=== PATIENT | male | born 1970 | race Caucasian/White ===

== ENCOUNTER 2020-02-19 11:38 | Day surgery (SDC) | payer OTHER, BC ==
[~2020-02-19 11:38] MED LIST: Lactated Ringers 1,000 ML IV SCH; Sodium Chloride 0.9% 10 ML SDV IV PRN; Sodium Chloride 0.9% 10 ML Syringe FLUSH PRN; Sodium Chloride 0.9% 2.5 ML Syringe FLUSH PRN
--- NOTE | 2020-02-19 12:03 | PCM.PREANE ---
Preanesthetic Assessment - Anesthesia/Transfusion/Family Hx Anesthesia History: Prior Anesthesia Without Reaction Family History of Anesthesia Reaction: No Transfusion History: No Prior Transfusion(s) Intubation History: Unknown - Review of Systems General: No Symptoms Pulmonary: No Symptoms Cardiovascular: No Symptoms Gastrointestinal: Other (change of bowel habits) Neurological: No Symptoms Other: Reports: None - Physical Assessment Vital Signs: Last Vital Signs Temp 36.2 C 02/19/20 11:52 Pulse 80 02/19/20 11:52 Resp 16 02/19/20 11:52 BP 121/83 02/19/20 11:52 Pulse Ox 95 02/19/20 11:52 Height: 5 ft 8 in Weight: 84.368 kg ASA Class: 2 Mental Status: Alert & Oriented x3 Airway Class: Mallampati = 2 Dentition: Reports: Normal Dentition Thyro-Mental Finger Breadths: 3 Mouth Opening Finger Breadths: 3 ROM/Head Extension: Full Lungs: Clear to Auscultation, Normal Respiratory Effort Cardiovascular: Regular Rate, Regular Rhythm - Allergies Allergies/Adverse Reactions: Allergies Allergy/AdvReac Type Severity Reaction Status Date / Time No Known Allergies Allergy Verified 02/19/20 11:58 - Blood Blood Available: No - Anesthesia Plan Pre-Op Medication Ordered: None - Acknowledgements Anesthesia Type Planned: MAC Pt an Appropriate Candidate for the Planned Anesthesia: Yes Alternatives and Risks of Anesthesia Discussed w Pt/Guardian: Yes Pt/Guardian Understands and Agrees with Anesthesia Plan: Yes PreAnesthesia Questionnaire HEENT History: Reports: Other (See Below) Other HEENT History: hx fx nose Cardiovascular History: Reports: None Respiratory History: Reports: None Gastrointestinal History: Reports: Other (See Below) Other Gastrointestinal History: occasional heartburn Genitourinary History: Reports: Renal Calculus Musculoskeletal History: Reports: Arthritis Neurological History: Reports: Other (See Below) Other Neuro History: Restless legs in the past Psychiatric History: Reports: Anxiety, Depression, PTSD Other Psychiatric History: takes prazosin for nightmares Endocrine/Metabolic History: Reports: Hypothyroidism Hematologic History: Reports: None Immunologic History: Reports: None Oncologic (Cancer) History: Reports: None Dermatologic History: Reports: None - Past Surgical History Head Surgeries/Procedures: Reports: None HEENT Surgical History: Reports: Naso-Sinus Surgery Cardiovascular Surgical History: Reports: None Respiratory Surgical History: Reports: None GI Surgical History: Reports: None Male Surgical History: Reports: None Endocrine Surgical History: Reports: None Neurological Surgical History: Reports: None Musculoskeletal Surgical History: Reports: Arthroscopic Knee Oncologic Surgical History: Reports: None Dermatological Surgical History: Reports: None - SUBSTANCE USE Tobacco Use Status *Q: Never Tobacco User - HOME MEDS Home Medications: Home Meds Ibuprofen [Motrin] 1 tab PO ASDIRECTED PRN 04/26/16 [History] ClonazePAM [KlonoPIN] 0.5 tab PO BID PRN 02/13/20 [History] Diclofenac Sodium 1 applic TOP ASDIRECTED PRN 02/13/20 [History] Levothyroxine Sodium [Synthroid] 75 mcg PO DAILY 02/13/20 [History] Prazosin HCl [Prazosin] 2 tab PO BEDTIME 02/13/20 [History] traZODone HCl [Trazodone HCl] 150 mg PO BEDTIME 02/13/20 [History] - CURRENT (IN HOUSE) MEDS Current Meds: Current Medications Lactated Ringer's (Ringers, Lactated) 1,000 mls @ 125 mls/hr IV ASDIRECTED MCKINLEY Last Admin: 02/19/20 11:57 Dose: 125 mls/hr Documented by: Sodium Chloride (Saline Flush) 10 ml FLUSH ASDIRECTED PRN PRN Reason: Keep Vein Open Sodium Chloride (Saline Flush) 2.5 ml FLUSH ASDIRECTED PRN PRN Reason: Keep Vein Open Sodium Chloride (Saline Flush) 10 ml FLUSH ASDIRECTED PRN PRN Reason: Keep Vein Open Sodium Chloride (Saline Flush) 2.5 ml FLUSH ASDIRECTED PRN PRN Reason: Keep Vein Open Sodium Chloride (Normal Saline) 10 ml IV ASDIRECTED PRN PRN Reason: IV Use
[2020-02-19] MEDS ORDERED: fentaNYL 100 MCG/2 ML SDV ONE (14:30)
[2020-02-19] MEDS ORDERED: Propofol 200 MG/20 ML SDV ONE ×2 (14:30→14:34)
[2020-02-19] MEDS ORDERED: Midazolam 1 MG/ML 2 ML SDV ONE (14:30)
--- NOTE | 2020-02-19 15:33 | PCM.OPNOTE ---
- General Post-Op/Procedure Note Date of Surgery/Procedure: 02/19/20 Operative Procedure(s): Diagnostic colonoscopy Findings: Normal appearing colonoscopy Pre Op Diagnosis: Change in bowel habits Post-Op Diagnosis: Normal colonoscopy Anesthesia Technique: SRAVAN Primary Surgeon: Kathleen Sweet Condition: Good
[2020-02-19 15:35] VITALS: PULSE 59
--- NOTE | 2020-02-19 15:35 | PCM.POSTAN ---
POST ANESTHESIA ASSESSMENT - MENTAL STATUS Mental Status: Alert, Oriented - VITAL SIGNS Vital Signs: Last Vital Signs Temp 36.2 C 02/19/20 11:52 Pulse 71 02/19/20 15:29 Resp 12 02/19/20 15:29 BP 102/66 02/19/20 15:29 Pulse Ox 97 02/19/20 15:29 - RESPIRATORY Respiratory Status: Respiratory Rate WNL, Airway Patent, O2 Saturation Stable - CARDIOVASCULAR CV Status: Pulse Rate WNL, Blood Pressure Stable - GASTROINTESTINAL GI Status: No Symptoms - POST OP HYDRATION Hydration Status: Adequate & Stable - OBSERVATIONS Free Text/Narrative:: The patient tolerated the procedure well. There were no apparent anesthetic complications at this time. Discharge to phase 2.
--- NOTE | 2020-02-19 15:54 | PCM48HPAN ---
Post Anesthesia Note - EVALUATION WITHIN 48HRS OF ANESTHETIC Vital Signs in Normal Range: Yes Patient Participated in Evaluation: Yes Respiratory Function Stable: Yes Airway Patent: Yes Cardiovascular Function Stable: Yes Hydration Status Stable: Yes Pain Control Satisfactory: Yes Nausea and Vomiting Control Satisfactory: Yes Mental Status Recovered: Yes Vital Signs: Last Vital Signs Temp 36.2 C 02/19/20 11:52 Pulse 59 L 02/19/20 15:34 Resp 14 02/19/20 15:34 BP 106/73 02/19/20 15:34 Pulse Ox 97 02/19/20 15:34 - COMMENTS/OBSERVATIONS Free Text/Narrative:: The patient is ready to go home to get a Hamburger. He has no complaints or questions. He meets discharge criteria. Discharge home.
[2020-02-19 16:03] VITALS: BP 106/69
--- NOTE | 2020-02-20 20:45 | OR ---
SURGEON: KATHLEEN SWEET MD DATE OF PROCEDURE: 02/19/2020 PREOPERATIVE DIAGNOSIS: Change in bowel habits. POSTOPERATIVE DIAGNOSIS: Normal colonoscopy. PROCEDURE PERFORMED: Diagnostic colonoscopy. PRIMARY SURGEON: Kathleen Sweet MD ANESTHESIA: MAC. INSTRUMENT USED: Olympus colonoscope. EXTENT OF EXAM: To the cecum. PREPARATION: Good. LIMITATIONS: None. INDICATIONS FOR EXAMINATION: The patient is a 49-year-old male who presents for screening colonoscopy, but upon further questioning, the patient has been having changes in his bowel habits. We discussed the need for diagnostic colonoscopy. I explained the procedure, expected perioperative course, and risks. The patient verbalized understanding and wishes to proceed. PROCEDURE IN DETAIL: The patient was brought into the endoscopy suite and placed in the left lateral decubitus position. A time-out was completed verifying the patient's name, age, date of , allergies, and procedure to be performed. Monitored anesthesia care was induced and continuous oxygen was provided via nasal cannula throughout the procedure. After adequate sedation was achieved, a digital rectal exam was performed. This exam was within normal limits. A well-lubricated colonoscope was inserted in the rectum and advanced under direct visualization to the level of the cecum. The cecum was identified by both visual and anatomic landmarks. A photograph was taken of the cecal cap as well as with the scope retroflexed within the cecum. The scope was then fully withdrawn while examining the color, texture, anatomy, and integrity of the mucosa from the cecum to the anal canal. The patient was found to have normal colonic mucosa. The scope was brought into the rectum and retroflexed to allow visualization of the anal canal opening. This appeared normal and a photograph was taken. The scope was then straightened out and fully withdrawn. The cecum to anus time was 14 minutes. The patient tolerated the procedure well and was transferred to the PACU in stable condition. ENDOSCOPIC DIAGNOSIS: Normal colonoscopy. RECOMMENDATIONS: I visited with the patient about his findings in the postoperative care area. I have mentioned performing a diagnostic CT of the abdomen and pelvis to rule out any extracolonic pathology. The patient declined at this time. He would need a followup colonoscopy in 10 years. He can come back to see me to discuss ways to manage his bowel habits better in the future. WILLOW / ALTA /[id number]
== END 2020-02-19 15:59 | disposition home or self-care (01) ==
LOC: MW.SDS 11:38
PROVIDERS: ATTEND Surgery
DX: R19.4 Change in bowel habit (principal); M17.12 Unilateral primary osteoarthritis, left knee; F41.9 Anxiety disorder, unspecified; F32.9 Major depressive disorder, single episode, unspecified; Z79.899 Other long term (current) drug therapy; Z20.828 Contact with and (suspected) exposure to other viral communicable diseases; Z98.890 Other specified postprocedural states
CPT/HCPCS: 45378; J2001; J2250; J2704; J3010; J7120; 00811

== ENCOUNTER 2024-09-21 10:08 | Emergency (ER) | payer BC, OTHER ==
[2024-09-21] MEDS ORDERED: Sodium Chloride 0.9% 10 ML Syringe FLUSH PRN (10:36)
[2024-09-21] MEDS ORDERED: Sodium Chloride 0.9% 2.5 ML Syringe FLUSH PRN (10:36)
[2024-09-21] MEDS ORDERED: Sodium Chloride 0.9% 20 ML SDV IV PRN (10:36)
[2024-09-21] MEDS: Ondansetron 4 MG/2 ML SDV IVPUSH ONE (10:42)
[2024-09-21] MEDS: Sodium Chloride 0.9% 1,000 ML IV STA (10:44)
[2024-09-21 10:48] LABS: HEMATOCRIT 44.1 % (42.0-52.0); HEMOGLOBIN 15.3 g/dL (14.0-18.0); MEAN CORPUSCULAR HEMOGLOBIN 30.7 pg (28.0-32.0); MEAN CORPUSCULAR HGB CONC 34.7 g/dL (32.0-36.0); MEAN CORPUSCULAR VOLUME 88.6 fL (83.0-99.0); MEAN PLATELET VOLUME 10.2 fL (9.4-12.4); PLATELET COUNT,PLT 189 K/uL (150-400); RED BLOOD CELL COUNT 4.98 M/uL (4.52-5.90); WHITE BLOOD CELL COUNT,WBC 5.86 K/uL (3.9-11.3)
[2024-09-21 11:10] VITALS: BP 115/78; PULSE 89
[2024-09-21 11:14] LABS: BAND ABSOLUTE MAN 0.23; BAND PERCENT MAN 4 %; EOSINOPHILS ABSOLUTE MAN 0.06 K/uL (0.00-0.45); EOSINOPHILS PERCENT MAN 1 % (0-6); LYMPHOCYTES ABSOLUTE MAN 0.76 K/uL (1.00-4.80); LYMPHOCYTES PERCENT MAN 13 % (24-44); MONOCYTES ABSOLUTE MAN 1.47 K/uL (0.00-0.80); MONOCYTES PERCENT MAN 25 % (0-8); SEG NEUTROPHILS ABSOLUTE MAN 3.34 K/uL (1.80-7.70); SEG NEUTROPHILS PERCENT MAN 57 % (41-71)
[2024-09-21 11:15] LABS: A/G RATIO 1.1 (0.9-1.6); ALANINE AMINOTRANSFERASE,ALT 13 IU/L (14-63); ALBUMIN 3.9 g/dL (3.4-5.0); ALKALINE PHOSPHATASE 81 U/L (46-116); ASPARTATE AMNIOTRANSFERASE,AST 12 IU/L (15-37); BILIRUBIN TOTAL 1.8 mg/dL (0.2-1.0); BLOOD UREA NITROGEN,BUN 13 mg/dL (7.0-18.0); CALCIUM 8.4 mg/dL (8.5-10.1); CHLORIDE,CL 103 mmol/L (98-107); CREATININE 1.1 mg/dL (0.8-1.3); GLUCOSE RANDOM 110 mg/dL (74-106); LIPASE 59 U/L (16-77); POTASSIUM,K 3.9 mmol/L (3.5-5.1); PROTEIN TOTAL,TP 7.4 g/dL (6.4-8.2); SODIUM,NA 137 mmol/L (136-148)
[2024-09-21 11:22] LABS: ESTIMATED GFR 79 mL/min (>60)
[2024-09-21 12:11] LABS: BILIRUBIN,URINE NEGATIVE (NEGATIVE); GLUCOSE,URINE NEGATIVE (NEGATIVE); KETONES,URINE TRACE mg/dL (NEGATIVE); LEUKOCYTE ESTERASE,URINE NEGATIVE (NEGATIVE); NITRITE,URINE NEGATIVE (NEGATIVE); OCCULT BLOOD,URINE NEGATIVE (NEGATIVE); PH,URINE 5.5 (5.0-8.0); PROTEIN,URINE NEGATIVE (NEGATIVE); UROBILINOGEN,URINE 0.2 EU/dL (<2.0)
[2024-09-21] MEDS: Magnesium Citrate Solution 296 ML Bottle PO ONE (12:16)
[2024-09-21] MEDS: Lactulose Soln 10 GM/15 ML 15 ML UD Cup PO ONE (12:16)
[2024-09-21] MEDS: Polyethylene Glycol 3350 Powder 17 GM Packet PO ONE (12:16)
[2024-09-21 12:21] LABS: AMPHETAMINES SCREEN, URINE NEGATIVE (CUTOFF=500); BARBITURATE SCREEN,URINE NEGATIVE (CUTOFF=200); BENZODIAZEPINES SCREEN,URINE PRESUMPTIVE POSITIVE (CUTOFF=150); BUPRENORPHINE SCREEN,URINE NEGATIVE (CUTOFF=10); METHADONE SCREEN, URINE NEGATIVE (CUTOFF=200); METHAMPHETAMINES SCREEN, URINE NEGATIVE (CUTOFF=500); OXYCODONE SCREEN,URINE NEGATIVE (CUT0FF=100); PCP SCREEN,URINE NEGATIVE (CUTOFF=25); THC SCREEN,URINE 20 NG/ML NEGATIVE (CUTOFF=50)
[2024-09-21 12:25] LABS: APPEARANCE,URINE HAZY; COLOR,URINE DARK YELLOW; EPITHELIAL CELLS,URINE RARE (NONE-FEW); RBC,URINE 0-1 (0-2/HPF); WBC,URINE 0-1 (0-5/HPF)
[2024-09-21 12:26] LABS: BACTERIA,URINE RARE (NEGATIVE)
== END 2024-09-21 12:20 | disposition home or self-care (01) ==
LOC: MW.ED 10:08
DX: K59.00 Constipation, unspecified (principal); E03.9 Hypothyroidism, unspecified; T38.3X5A Adverse effect of insulin and oral hypoglycemic [antidiabetic] drugs, initial encounter; Z79.899 Other long term (current) drug therapy; Z79.890 Hormone replacement therapy
CPT/HCPCS: 36415; 74018; 80053; 80305; 81001; 81003; 83690; 84484; 85025; 85730; 93005; 96361; 96374; 99284; A9270; J2405; J7030; 93010; 99283